=== PATIENT | female | born 1990 | race Two or more races ===

== ENCOUNTER 2020-12-05 07:34 | Emergency (ER) | payer OTHER ==
[2020-12-05 07:45] VITALS: BP 117/76; PULSE 93; TEMP 97.7; BMI 36.3
[2020-12-05] MEDS ORDERED: KETOROLAC TROMETHAMINE 30 MG/1 ML VIAL IM ONE (08:02)
[2020-12-05] MEDS ORDERED: METHOCARBAMOL 500 MG TABLET PO ONE (08:02)
[2020-12-05] MEDS ORDERED: KETOROLAC TROMETHAMINE 30 MG/1 ML VIAL ONE (08:19)
[2020-12-05] MEDS ORDERED: METHOCARBAMOL 500 MG TABLET ONE (08:19)
== END 2020-12-05 09:50 | disposition home or self-care (01) ==
LOC: JER 07:34
PROC: 3E0233Z Introduction of Anti-inflammatory into Muscle, Percutaneous Approach (ICD-10-PCS; principal; 2020-12-05)
DX: S53.401A Unspecified sprain of right elbow, initial encounter (principal)
CPT/HCPCS: 73060-TC-RT-FY; 73070-TC-RT-FY; 99284-25

== ENCOUNTER 2022-07-05 13:47 | Inpatient (IN) | payer OTHER ==
[2022-07-05] MEDS ORDERED: SODIUM CHLORIDE 1,000 ML IV STA (15:38)
[2022-07-05] MEDS ORDERED: ACETAMINOPHEN 1000 MG/100 ML BAG IVPB ONE (15:38)
[2022-07-05] MEDS ORDERED: ONDANSETRON 4 MG/2 ML VIAL IVPUSH ONE (15:38)
[2022-07-05] MEDS ORDERED: PANTOPRAZOLE SODIUM 40 MG VIAL IVPB ONE (15:39)
[2022-07-05] MEDS ORDERED: PANTOPRAZOLE SODIUM 40 MG/100 ML BAG IVPB ONE (15:57)
[2022-07-05] MEDS ORDERED: ACETAMINOPHEN INJECTION 100 ML IVPB ONE (15:57)
[2022-07-05] MEDS ORDERED: ONDANSETRON 4 MG/2 ML VIAL ONE (15:57)
[2022-07-05 16:16] LABS: BASO % 0.6 % (0-2.0); EOS % 0.2 % (0-4.5); HEMATOCRIT 42.1 % (32.4-45.2); HEMOGLOBIN 13.4 GM/dL (10.7-15.3); LYMPH % 21.5 % (8-40); MCH 21.6 pg (25.7-33.7); MCHC 31.8 g/dl (32.0-36.0); MEAN CELL VOLUME 68.1 fl (80-96); MEAN PLT VOLUME 8.5 fl (7.5-11.1); NEUT % 64.7 % (42.8-82.8); PLATELET COUNT 298 10^3/uL (134-434); RBC 6.18 M/mm3 (3.60-5.2); RDW 14.8 % (11.6-15.6); WHITE BLOOD COUNT 9.9 K/mm3 (4.0-10.0)
[2022-07-05 16:36] LABS: CALCIUM 9.6 mg/dL (8.5-10.1)
[2022-07-05 16:37] LABS: ALBUMIN 4.2 g/dl (3.4-5.0); BLOOD UREA NITROGEN 10.5 mg/dL (7-18)
[2022-07-05 16:40] LABS: CREATININE 0.8 mg/dL (0.55-1.3)
[2022-07-05 16:41] LABS: BILIRUBIN,TOTAL 1.2 mg/dL (0.2-1); TOT PROT 8.2 g/dl (6.4-8.2)
[2022-07-05] MEDS ORDERED: KETOROLAC TROMETHAMINE 30 MG/1 ML VIAL IVPUSH ONE (20:47)
[2022-07-05] MEDS ORDERED: KETOROLAC TROMETHAMINE 30 MG/1 ML VIAL ONE (21:00)
[2022-07-05] MEDS ORDERED: METOCLOPRAMIDE HCL INJECTION 10 MG/2 ML VIAL IVPUSH ONE (21:09)
[2022-07-05 21:22] LABS: EPI CELLS 20 /uL (0-25.1); HYALINE CASTS 1 /uL (0-3.1); URINE APPEARANCE CLEAR; URINE BACTERIA 99 /uL (0-1359); URINE BILIRUBIN 1+ (NEGATIVE); URINE COLOR DK YELLOW; URINE GLUCOSE (UA) NEGATIVE (NEGATIVE); URINE KETONE 4+ (NEGATIVE); URINE LEUK ESTERASE TRACE (NEGATIVE); URINE NITRITE NEGATIVE (NEGATIVE); URINE PROTEIN 2+ (NEGATIVE); URINE RBC 100 /uL (0-23.9); URINE WBC 33 /uL (0-25.8)
[2022-07-05] MEDS ORDERED: METOCLOPRAMIDE HCL INJECTION 10 MG/2 ML VIAL ONE (21:23)
[2022-07-06] MEDS ORDERED: DEXTROSE 5%-WATER - 1,000 ML IV SCH (02:15)
[2022-07-06 03:20] LABS: METHADONE, UR NEGATIVE (NEGATIVE); URINE BENZODIAZEPINES NEGATIVE (NEGATIVE)
[2022-07-06 03:21] LABS: COCAINE, UR NEGATIVE (NEGATIVE); OPIATES, URI NEGATIVE (NEGATIVE); URINE BARBITURATES NEGATIVE (NEGATIVE)
[2022-07-06 03:48] LABS: PHENCYCLIDINE,URINE NEGATIVE (NEGATIVE); URINE AMPHETAMINES NEGATIVE (NEGATIVE)
[2022-07-06] MEDS: PANTOPRAZOLE SODIUM 40 MG VIAL IVPUSH SCH (09:53)
[2022-07-06] MEDS ORDERED: ENOXAPARIN NA (PORCINE) 40 MG/0.4 ML DISP.SYRIN SQ SCH (10:00)
[2022-07-06] MEDS ORDERED: ONDANSETRON 4 MG/2 ML VIAL IVPUSH ONE (17:22)
[2022-07-06] MEDS: CEFTRIAXONE 1 GM in DEXTROSE 5%-WATER - 50 ML IVPB SCH (20:24)
[2022-07-06] MEDS: METOCLOPRAMIDE HCL INJECTION 10 MG/2 ML VIAL IVPUSH PRN (20:24)
[2022-07-06] MEDS: ONDANSETRON 4 MG/2 ML VIAL IVPUSH PRN (23:52)
[2022-07-07] MEDS: METOCLOPRAMIDE HCL INJECTION 10 MG/2 ML VIAL IVPUSH PRN (07:55)
[2022-07-07] MEDS: CEFTRIAXONE 1 GM in DEXTROSE 5%-WATER - 50 ML IVPB SCH (10:55)
[2022-07-07] MEDS: PANTOPRAZOLE SODIUM 40 MG VIAL IVPUSH SCH (10:56)
[2022-07-07] MEDS: ONDANSETRON 4 MG/2 ML VIAL IVPUSH PRN (10:57)
[2022-07-07 12:27] LABS: BASO % 0.5 % (0-2.0); EOS % 0.7 % (0-4.5); HEMATOCRIT 44.7 % (32.4-45.2); LYMPH % 23.4 % (8-40); MCH 21.1 pg (25.7-33.7); MCHC 31.3 g/dl (32.0-36.0); MEAN CELL VOLUME 67.5 fl (80-96); MEAN PLT VOLUME 9.1 fl (7.5-11.1); MONO % 13.4 % (3.8-10.2); PLATELET COUNT 312 10^3/uL (134-434); RBC 6.62 M/mm3 (3.60-5.2); WHITE BLOOD COUNT 9.1 K/mm3 (4.0-10.0)
[2022-07-07 12:35] LABS: INR 1.14 (0.83-1.09); PROTHROMBIN TIME (PATIENT) 13.1 SEC (9.7-13.0)
[2022-07-07 12:38] LABS: ACTIVATED PTT 27.6 SECONDS (25.2-36.5)
[2022-07-07 12:55] LABS: ALBUMIN 4.2 g/dl (3.4-5.0); BLOOD UREA NITROGEN 10.1 mg/dL (7-18); CALCIUM 9.6 mg/dL (8.5-10.1); MAGNESIUM 2.3 mg/dL (1.8-2.4)
[2022-07-07 12:59] LABS: CREATININE 0.9 mg/dL (0.55-1.3)
[2022-07-07 13:00] LABS: BILIRUBIN,TOTAL 1.8 mg/dL (0.2-1); TOT PROT 8.2 g/dl (6.4-8.2)
[2022-07-07 13:32] LABS: ANISOCYTOSIS 2+; MACROCYTOSIS 0
[2022-07-07 15:35] VITALS: BMI 37.4
[2022-07-07] MEDS ORDERED: amLODIPine BESYLATE 10 MG TABLET (FP) PO ONE (16:24)
[2022-07-07] MEDS: ENOXAPARIN NA (PORCINE) 40 MG/0.4 ML DISP.SYRIN SQ SCH (18:12)
[2022-07-07] MEDS: CARVEDILOL 6.25 MG TABLET (FP) PO SCH (22:51)
[2022-07-08] MEDS: ONDANSETRON 4 MG/2 ML VIAL IVPUSH PRN (06:57)
[2022-07-08] MEDS: METOCLOPRAMIDE HCL INJECTION 10 MG/2 ML VIAL IVPUSH PRN (08:59)
[2022-07-08] MEDS: PANTOPRAZOLE SODIUM 40 MG VIAL IVPUSH SCH (10:52)
[2022-07-08] MEDS: amLODIPine BESYLATE 10 MG TABLET (FP) PO SCH (10:54)
[2022-07-08] MEDS: CEFTRIAXONE 1 GM in DEXTROSE 5%-WATER - 50 ML IVPB SCH (10:54)
[2022-07-08] MEDS: CARVEDILOL 6.25 MG TABLET (FP) PO SCH ×2 (10:54→21:38)
[2022-07-08] MEDS: ENOXAPARIN NA (PORCINE) 40 MG/0.4 ML DISP.SYRIN SQ SCH (10:58)
[2022-07-08 13:36] LABS: HEPATITIS B SURFACE AG MATERN NON-REACTIVE (NONREACTIVE)
[2022-07-09 10:36] LABS: BASO % 0.5 % (0-2.0); EOS % 1.4 % (0-4.5); HEMATOCRIT 43.9 % (32.4-45.2); HEMOGLOBIN 13.5 GM/dL (10.7-15.3); LYMPH % 27.5 % (8-40); MCH 21.2 pg (25.7-33.7); MCHC 30.8 g/dl (32.0-36.0); MEAN CELL VOLUME 68.8 fl (80-96); MEAN PLT VOLUME 9.2 fl (7.5-11.1); MONO % 14.8 % (3.8-10.2); NEUT % 55.8 % (42.8-82.8); PLATELET COUNT 296 10^3/uL (134-434); RBC 6.38 M/mm3 (3.60-5.2); RDW 15.1 % (11.6-15.6); WHITE BLOOD COUNT 10.5 K/mm3 (4.0-10.0)
[2022-07-09] MEDS: CEFTRIAXONE 1 GM in DEXTROSE 5%-WATER - 50 ML IVPB SCH (10:36)
[2022-07-09] MEDS: amLODIPine BESYLATE 10 MG TABLET (FP) PO SCH (10:36)
[2022-07-09] MEDS: ENOXAPARIN NA (PORCINE) 40 MG/0.4 ML DISP.SYRIN SQ SCH (10:36)
[2022-07-09] MEDS: CARVEDILOL 6.25 MG TABLET (FP) PO SCH ×2 (10:36→21:43)
[2022-07-09] MEDS: PANTOPRAZOLE SODIUM 40 MG VIAL IVPUSH SCH (10:36)
[2022-07-09] MEDS: ONDANSETRON 4 MG/2 ML VIAL IVPUSH PRN (10:36)
[2022-07-09 14:05] LABS: BILIRUBIN,TOTAL 0.6 mg/dL (0.2-1); BLOOD UREA NITROGEN 15.3 mg/dL (7-18); CALCIUM 9.4 mg/dL (8.5-10.1); CREATININE 0.9 mg/dL (0.55-1.3); MAGNESIUM 2.5 mg/dL (1.8-2.4); TOT PROT 7.8 g/dl (6.4-8.2)
[2022-07-09 16:28] VITALS: RESP 18
[2022-07-10 08:56] VITALS: BP 134/72; PULSE 102; TEMP 98.2
[2022-07-10] MEDS: ENOXAPARIN NA (PORCINE) 40 MG/0.4 ML DISP.SYRIN SQ SCH (09:18)
[2022-07-10] MEDS: CEFTRIAXONE 1 GM in DEXTROSE 5%-WATER - 50 ML IVPB SCH (09:18)
[2022-07-10] MEDS: amLODIPine BESYLATE 10 MG TABLET (FP) PO SCH (09:18)
[2022-07-10] MEDS: CARVEDILOL 6.25 MG TABLET (FP) PO SCH (09:19)
[2022-07-10] MEDS: PANTOPRAZOLE SODIUM 40 MG VIAL IVPUSH SCH (09:19)
[2022-07-10 15:21] LABS: CALCIUM 9.1 mg/dL (8.5-10.1)
[2022-07-10 15:22] LABS: ALBUMIN 3.8 g/dl (3.4-5.0); BLOOD UREA NITROGEN 15.2 mg/dL (7-18)
[2022-07-10 15:25] LABS: CREATININE 0.8 mg/dL (0.55-1.3)
[2022-07-10 15:27] LABS: BILIRUBIN,TOTAL 0.4 mg/dL (0.2-1); TOT PROT 7.7 g/dl (6.4-8.2)
[2022-07-10 16:12] LABS: EPSTEIN BARR ANTIBODY IgM <36.0 U/mL (0.0-35.9)
== END 2022-07-10 18:16 | disposition home or self-care (01) | DRG 463 ==
LOC: JER 13:47 → JERBED 21:11 → OBSVTOIN 07-06 02:10 → J5S 07-06 03:51
PROVIDERS: ADMIT Internal Medicine; ATTEND Nurse Practitioner Family
DX: N39.0 Urinary tract infection, site not specified (principal); E66.9 Obesity, unspecified; Z68.37 Body mass index [BMI] 37.0-37.9, adult; Z98.84 Bariatric surgery status; E28.2 Polycystic ovarian syndrome; R11.2 Nausea with vomiting, unspecified; R50.9 Fever, unspecified; I10 Essential (primary) hypertension; B95.1 Streptococcus, group B, as the cause of diseases classified elsewhere; K70.9 Alcoholic liver disease, unspecified; R74.8 Abnormal levels of other serum enzymes
CPT/HCPCS: 0241U-QW; 36415; 71046-TC-FY; 74177-TC; 74181-TC; 76705-TC; 80053; 80307; 81003; 82962; 83036; 83516; 83605; 83615; 83690; 83735; 84100; 84484; 84703; 85025; 85045; 85610; 85730; 86038; 86376; 86665; 86704; 86709; 86803; 86880; 87077; 87086; 87340; 87517; 93005; 93010; 99285-25; G0378; Q9967